=== PATIENT | female | born 1970 | race Hispanic/Latino ===

== ENCOUNTER 2025-05-03 08:39 | Outpatient (RCR) | payer OTHER ==
[~2025-05-03 08:39] MED LIST: NEXIUM40 MG PO; PRILOSEC OTC20 MG PO; TYLENOL WITH C1 EACH PO
== END 2025-05-22 ==
LOC: PT 08:39
PROVIDERS: ATTEND Family Medicine Sports Medicine
DX: M72.2 Plantar fascial fibromatosis (principal)

== ENCOUNTER 2025-05-24 13:19 | Outpatient (RCR) | payer OTHER | END 2025-06-22 | LOC: PT 13:19 | PROVIDERS: ATTEND Family Medicine Sports Medicine | DX: M72.2 Plantar fascial fibromatosis (principal) ==